=== PATIENT | male | born 1995 | race Caucasian/White ===

== ENCOUNTER 2018-08-13 14:24 | Emergency (ER) | payer OTHER, SELFPAY ==
[2018-08-13 14:26] VITALS: BP 125/80; PULSE 96; RESP 18; TEMP 36.8; O2SAT 100
--- NOTE | 2018-08-13 14:31 | DI.RAD.S_ITS ---
PROCEDURE: XR ANKLE LT MIN 3V INDICATIONS: lt ankle pain, trip/fall TECHNIQUE: 3 views of the ankle were acquired. COMPARISON: None. FINDINGS: Bones: No fractures or dislocations. Ankle mortise is normally aligned. No suspicious bony lesions. Moderate periarticular osteophyte formation at the tibiotalar joint. Soft tissues: No tibiotalar joint effusion. Achilles tendon appears normal. IMPRESSION: Osteoarthritis. No acute fracture. No osseous lesion. If symptoms and/or clinical suspicion for pathology persist, further assessment with repeat, or advanced imaging (e.g., CT, MRI, or bone scan) may be helpful for further assessment. Dictated by: Ritchie Cabezas M.D. on 08/13/2018 at 15:06 Approved by: Ritchie Cabezas M.D. on 08/13/2018 at 15:06
--- NOTE | 2018-08-13 19:17 | ED.LOWEXIN ---
HPI - Extremity Injury (Lower) General Chief Complaint: Extremity Injury, Lower Stated Complaint: LT ANKLE PAIN Time Seen by Provider: 08/13/18 16:11 Source: patient and family Mode of arrival: ambulatory Limitations: no limitations History of Present Illness HPI Narrative: 23-year-old non smoking malel on the autistic spectrum presents with a chief complaint of inverting his left ankle while at work earlier today. He has a long history of injury to this ankle which includes a talar fracture requiring surgery a few years ago. His ankle has some swelling in his pain is largely over the lateral malleolus. He denies any knee or hip pain. His pain is worse with ambulation and improves with rest. He admittedly tolerates pain quite well Onset (ago): hour(s) Type of Injury: inversion Place: work Severity: moderate Relieving factors: rest Exacerbating factors: weight bearing, movement and palpation Context: walking Associated symptoms: swelling Other symptoms: none Treatments prior to arrival: cold therapy Related Data Home Medications Medication Instructions Recorded Confirmed aripiprazole [Abilify] 2.5 mg PO BID #0 08/11/16 08/13/18 clonidine HCl 0.1 mg tablet 0.1 mg PO BID 12/28/17 08/13/18 sertraline 100 mg tablet 200 mg PO DAILY 12/28/17 08/13/18 atomoxetine 40 mg PO DAILY 08/13/18 08/13/18 levothyroxine [Synthroid] 75 mcg PO DAILY 08/13/18 08/13/18 Allergies Allergy/AdvReac Type Severity Reaction Status Date / Time No Known Drug Allergies Allergy Verified 02/25/18 14:34 Review of Systems Constitutional Denies chills, Denies fever(s), Denies lethargy and Denies weakness Eyes Denies change in vision, Denies eye discharge, Denies irritation and Denies loss of vision ENT Ears, Nose, Mouth, and Throat: Denies change in voice, Denies neck pain and Denies sore throat Cardiovascular Denies chest pain, Denies irregular heart rhythm, Denies lightheadedness, Denies palpitations, Denies dyspnea, Denies dyspnea on exertion and Denies orthopnea Respiratory Denies cough, Denies dyspnea, Denies dyspnea on exertion and Denies wheezing Gastrointestinal Gastrointestinal: Denies abdominal pain, Denies change in bowel habits, Denies diarrhea, Denies nausea and Denies vomiting Genitourinary Denies hematuria, Denies flank pain, Denies urinary incontinence and Denies urinary urgency Musculoskeletal Reports joint swelling, Reports limited range of motion and Denies neck pain Integumentary/Breasts Denies pruritus, Denies erythema, Denies rash and Denies wounds Neurologic Denies confusion, Denies loss of vision and Denies weakness Psychiatric Denies anxiety, Denies confusion, Denies depression, Denies homicidal ideation and Denies suicidal ideation Endocrine Denies palpitations Hematologic/Lymphatic Denies easy bruising Allergic/Immunologic Denies wheezing [facility] Medical History Ankle pain (Chronic 2012) Anxiety (Chronic 1995) Autism (Chronic 1995) Foot pain (Chronic) Fractures (Resolved 2012) Surgical History Anesthesia (Resolved) History of Achilles tendon repair (Resolved 2012) History of Achilles tendon repair (Resolved 2013) Family History Grandfather Age: 61 Diabetes mellitus Mental health problem Grandmother Age: 60 Pre-diabetes High cholesterol Mother Age: 39 Overweight Father No problems noted. Grandfather No problems noted. Grandmother No problems noted. Social History Smoking Status: Never smoker Family History Grandfather Age: 61 Diabetes mellitus Mental health problem Grandmother Age: 60 Pre-diabetes High cholesterol Mother Age: 39 Overweight Father No problems noted. Grandfather No problems noted. Grandmother No problems noted. Social History Smoking Status: Never smoker Exam Narrative Exam Narrative: GEN: AOx3 and in mild distress EYES: Pupils are equal, round, and reactive to light and accommodation. Extraoccular muscles are intact bilaterally. There is no subconjunctival hemorrhage or exudate. CHEST: Lungs are clear to auscultation bilaterally and free of wheezes, rales, or rhonchi. Heart rate is regular rhythm, there are no murmurs, clicks, rubs, or gallops. There is no chest wall tenderness. ABD: Abdomen is soft and nontender. There is no guarding or rebound. Bowel sounds are normal in all 4 quadrants. There is no mass or organomegaly. EXT: left ankle has full but painful range of motion with no ligamentous instability. There is some swelling distal to the lateral malleolus in the distribution of the anterior talofibular ligament. He has no pain with a squeeze compression test to indicate high ankle sprain, no pain on palpation of proximal fibula. He has no pain on anterior ankle overlying the talus and no pain over the bony prominence of the medial malleolus. This injury is closed, isolated and neurovascularly intact. SKIN: Warm, pink, and dry. No erythema or rash Initial Vital Signs Initial Vital Signs: Vital Signs Temperature 98.3 F 08/13/18 14:26 Pulse Rate 96 H 08/13/18 14:26 Respiratory Rate 18 08/13/18 14:26 Blood Pressure 125/80 08/13/18 14:26 Pulse Oximetry 100 08/13/18 14:26 Course Orders Ordered: ED Orders 08/13/18 14:31 XR ankle LT min 3V Stat Vital Signs - 8 hr 08/13/18 14:26 Temperature 98.3 F Pulse Rate 96 H Respiratory Rate 18 Blood Pressure 125/80 Pulse Oximetry 100 MDM - Extremity Injury (Lower) Differential Diagnosis Likely ankle sprain and strain Imaging Data ankle xray: Radiologist's impression: [place] [address] XRay Report Signed Patient: Donny Bruno [facility]#: [id number] : 1995Acct:[id number] Age/Sex: 23 / MDate of Service: 08/13/18 Loc: ED Accession Number: [id number] Procedure: XR ankle LT min 3V Ordering Provider: Gianfranco Alicea D.O. PROCEDURE: XR ANKLE LT MIN 3V INDICATIONS: lt ankle pain, trip/fall TECHNIQUE: 3 views of the ankle were acquired. COMPARISON: None. FINDINGS: Bones: No fractures or dislocations. Ankle mortise is normally aligned. No suspicious bony lesions. Moderate periarticular osteophyte formation at the tibiotalar joint. Soft tissues: No tibiotalar joint effusion. Achilles tendon appears normal. IMPRESSION: Osteoarthritis. No acute fracture. No osseous lesion. If symptoms and/or clinical suspicion for pathology persist, further assessment with repeat, or advanced imaging (e.g., CT, MRI, or bone scan) may be helpful for further assessment. Dictated by: Ritchie Cabezas M.D. on 08/13/2018 at 15:06 Approved by: Ritchie Cabezas M.D. on 08/13/2018 at 15:06 Discharge Plan Departure Patient Disposition: Home Clinical Impression: Ankle sprain and strain Discharge Date/Time: 08/13/18 16:42 Interventions: ED Discharge Assessment Last Done: 08/13/18 16:42 Instructions: DI for Ankle Sprain Activity Restrictions/Additional Instructions: *You have been diagnosed with [ ankle sprain ] *What to do: *Take medications as directed: Tylenol or Motrin for pain *Follow up with your primary care provider in 2-3 days, call for an appointment. Let them know you were seen in the Emergency Department and that we ask that you be seen in follow up *Return to ER if you should have any new, worsening or concerning symptoms Prescriptions: No Action aripiprazole [Abilify] 5 MG tablet 2.5 mg PO BID Qty: 0 RF: 0 sertraline 100 mg tablet 200 mg PO DAILY RF: 0 clonidine HCl 0.1 mg tablet 0.1 mg PO BID RF: 0 atomoxetine 40 mg capsule 40 mg PO DAILY RF: 0 levothyroxine [Synthroid] 75 mcg tablet 75 mcg PO DAILY RF: 0 Referrals: Charlotte Hanna DO [Primary Care Provider] - Stand Alone Forms: Work Release Note
--- NOTE | 2018-08-13 19:20 | ED_ITS ---
HPI - Extremity Injury (Lower) General Chief Complaint: Extremity Injury, Lower Stated Complaint: LT ANKLE PAIN Time Seen by Provider: 08/13/18 16:11 Source: patient and family Mode of arrival: ambulatory Limitations: no limitations History of Present Illness HPI Narrative: 23-year-old non smoking malel on the autistic spectrum presents with a chief complaint of inverting his left ankle while at work earlier today. He has a long history of injury to this ankle which includes a talar fracture requiring surgery a few years ago. His ankle has some swelling in his pain is largely over the lateral malleolus. He denies any knee or hip pain. His pain is worse with ambulation and improves with rest. He admittedly tolerates pain quite well Onset (ago): hour(s) Type of Injury: inversion Place: work Severity: moderate Relieving factors: rest Exacerbating factors: weight bearing, movement and palpation Context: walking Associated symptoms: swelling Other symptoms: none Treatments prior to arrival: cold therapy Related Data Home Medications Medication Instructions Recorded Confirmed aripiprazole [Abilify] 2.5 mg PO BID #0 08/11/16 08/13/18 clonidine HCl 0.1 mg tablet 0.1 mg PO BID 12/28/17 08/13/18 sertraline 100 mg tablet 200 mg PO DAILY 12/28/17 08/13/18 atomoxetine 40 mg PO DAILY 08/13/18 08/13/18 levothyroxine [Synthroid] 75 mcg PO DAILY 08/13/18 08/13/18 Allergies Allergy/AdvReac Type Severity Reaction Status Date / Time No Known Drug Allergies Allergy Verified 02/25/18 14:34 Review of Systems Constitutional Denies chills, Denies fever(s), Denies lethargy and Denies weakness Eyes Denies change in vision, Denies eye discharge, Denies irritation and Denies loss of vision ENT Ears, Nose, Mouth, and Throat: Denies change in voice, Denies neck pain and Denies sore throat Cardiovascular Denies chest pain, Denies irregular heart rhythm, Denies lightheadedness, Denies palpitations, Denies dyspnea, Denies dyspnea on exertion and Denies orthopnea Respiratory Denies cough, Denies dyspnea, Denies dyspnea on exertion and Denies wheezing Gastrointestinal Gastrointestinal: Denies abdominal pain, Denies change in bowel habits, Denies diarrhea, Denies nausea and Denies vomiting Genitourinary Denies hematuria, Denies flank pain, Denies urinary incontinence and Denies urinary urgency Musculoskeletal Reports joint swelling, Reports limited range of motion and Denies neck pain Integumentary/Breasts Denies pruritus, Denies erythema, Denies rash and Denies wounds Neurologic Denies confusion, Denies loss of vision and Denies weakness Psychiatric Denies anxiety, Denies confusion, Denies depression, Denies homicidal ideation and Denies suicidal ideation Endocrine Denies palpitations Hematologic/Lymphatic Denies easy bruising Allergic/Immunologic Denies wheezing [facility] Medical History Ankle pain (Chronic 2012) Anxiety (Chronic 1995) Autism (Chronic 1995) Foot pain (Chronic) Fractures (Resolved 2012) Surgical History Anesthesia (Resolved) History of Achilles tendon repair (Resolved 2012) History of Achilles tendon repair (Resolved 2013) Family History Grandfather Age: 61 Diabetes mellitus Mental health problem Grandmother Age: 60 Pre-diabetes High cholesterol Mother Age: 39 Overweight Father No problems noted. Grandfather No problems noted. Grandmother No problems noted. Social History Smoking Status: Never smoker Family History Grandfather Age: 61 Diabetes mellitus Mental health problem Grandmother Age: 60 Pre-diabetes High cholesterol Mother Age: 39 Overweight Father No problems noted. Grandfather No problems noted. Grandmother No problems noted. Social History Smoking Status: Never smoker Exam Narrative Exam Narrative: GEN: AOx3 and in mild distress EYES: Pupils are equal, round, and reactive to light and accommodation. Extraoccular muscles are intact bilaterally. There is no subconjunctival hemorrhage or exudate. CHEST: Lungs are clear to auscultation bilaterally and free of wheezes, rales, or rhonchi. Heart rate is regular rhythm, there are no murmurs, clicks, rubs, or gallops. There is no chest wall tenderness. ABD: Abdomen is soft and nontender. There is no guarding or rebound. Bowel sounds are normal in all 4 quadrants. There is no mass or organomegaly. EXT: left ankle has full but painful range of motion with no ligamentous in stability. There is some swelling distal to the lateral malleolus in the distribution of the anterior talofibular ligament. He has no pain with a squeeze compression test to indicate high ankle sprain, no pain on palpation of proximal fibula. He has no pain on anterior ankle overlying the talus and no pain over the bony prominence of the medial malleolus. This injury is closed, isolated and neurovascularly intact. SKIN: Warm, pink, and dry. No erythema or rash Initial Vital Signs Initial Vital Signs: Vital Signs Temperature 98.3 F 08/13/18 14:26 Pulse Rate 96 H 08/13/18 14:26 Respiratory Rate 18 08/13/18 14:26 Blood Pressure 125/80 08/13/18 14:26 Pulse Oximetry 100 08/13/18 14:26 Course Orders Ordered: ED Orders 08/13/18 14:31 XR ankle LT min 3V Stat Vital Signs - 8 hr 08/13/18 14:26 Temperature 98.3 F Pulse Rate 96 H Respiratory Rate 18 Blood Pressure 125/80 Pulse Oximetry 100 MDM - Extremity Injury (Lower) Differential Diagnosis Likely ankle sprain and strain Imaging Data ankle xray: Radiologist's impression: [place] [address] XRay Report Signed Patient: Donny Bruno [facility]#: [id number] : 1995Acct:[id number] Age/Sex: 23 / MDate of Service: 08/13/18 Loc: ED Accession Number: [id number] Procedure: XR ankle LT min 3V Ordering Provider: Gianfranco Alicea D.O. PROCEDURE: XR ANKLE LT MIN 3V INDICATIONS: lt ankle pain, trip/fall TECHNIQUE: 3 views of the ankle were acquired. COMPARISON: None. FINDINGS: Bones: No fractures or dislocations. Ankle mortise is normally aligned. No suspicious bony lesions. Moderate periarticular osteophyte formation at the tibiotalar joint. Soft tissues: No tibiotalar joint effusion. Achilles tendon appears normal. IMPRESSION: Osteoarthritis. No acute fracture. No osseous lesion. If symptoms and/or clinical suspicion for pathology persist, further assessment with repeat, or advanced imaging (e.g., CT, MRI, or bone scan) may be helpful for further assessment. Dictated by: Ritchie Cabezas M.D. on 08/13/2018 at 15:06 Approved by: Ritchie Cabezas M.D. on 08/13/2018 at 15:06 Discharge Plan Departure Patient Disposition: Home Clinical Impression: Ankle sprain and strain Discharge Date/Time: 08/13/18 16:42 Interventions: ED Discharge Assessment Last Done: 08/13/18 16:42 Instructions: DI for Ankle Sprain Activity Restrictions/Additional Instructions: *You have been diagnosed with [ ankle sprain ] *What to do: *Take medications as directed: Tylenol or Motrin for pain *Follow up with your primary care provider in 2-3 days, call for an appointment. Let them know you were seen in the Emergency Department and that we ask that you be seen in follow up *Return to ER if you should have any new, worsening or concerning symptoms Prescriptions: No Action aripiprazole [Abilify] 5 MG tablet 2.5 mg PO BID Qty: 0 RF: 0 sertraline 100 mg tablet 200 mg PO DAILY RF: 0 clonidine HCl 0.1 mg tablet 0.1 mg PO BID RF: 0 atomoxetine 40 mg capsule 40 mg PO DAILY RF: 0 levothyroxine [Synthroid] 75 mcg tablet 75 mcg PO DAILY RF: 0 Referrals: Charlotte Hanna DO [Primary Care Provider] - Stand Alone Forms: Work Release Note
== END 2018-08-13 16:42 | disposition home or self-care (01) ==
PROVIDERS: Emergency Provider Emergency Medicine; PCP Family Medicine
DX: S93.402A Sprain of unspecified ligament of left ankle, initial encounter (principal); W01.0XXA Fall on same level from slipping, tripping and stumbling without subsequent striking against object, initial encounter; Y99.0 Civilian activity done for income or pay
CPT/HCPCS: 73610; 99282; 99283

== ENCOUNTER → 2021-09-15 15:43 | Outpatient (CLI) | payer BC, OTHER, MEDICAID, SELFPAY ==
[2021-09-15 17:12] LABS: Add Manual Diff / Slide Review NO; Basophils Absolute Auto 0 /uL (0-100); Basophils Percent Auto 0.6 % (0-2); Eosinophils Absolute Auto 100 /uL (0-450); Eosinophils Percent Auto 1.4 % (2-4); Hematocrit 45.1 % (41-53); Hemoglobin 15.8 g/dL (13.5-17.5); Lymphocytes Absolute Auto 2500 /uL (1100-4500); Lymphocytes Percent Auto 43.4 % (25-40); Mean Corpuscular Hemoglobin 29.7 PG (26-34); Mean Corpuscular Volume 84.9 fL (80-100); Monocytes Absolute Auto 400 /uL (0-900); Monocytes Percent Auto 6.6 % (3-14); Neutrophils Absolute Auto 2800 /uL (1500-7000); Platelet Count 179 X10^3/uL (150-400); Red Blood Cell Count 5.32 X10^6/uL (4.5-5.9); Red Cell Distribution Width 14.2 % (11.6-14.8); White Blood Cell Count 5.8 X10^3/uL (4.5-11.0)
[2021-09-15 17:19] LABS: Alanine Aminotransferase 56 IU/L (<50); Albumin 4.8 g/dL (3.5-5.0); Albumin Globulin Ratio 1.5 (1.0-2.8); Alkaline Phosphatase 59 U/L (38-126); Aspartate Aminotransferase 37 IU/L (17-59); BUN Creatinine Ratio 17.1 (6-22); Bilirubin Total 0.7 mg/dL (0.2-1.3); Blood Urea Nitrogen 13 mg/dL (9-20); Calcium 9.7 mg/dL (8.4-10.2); Carbon Dioxide 27 mmol/L (22-32); Chloride 100 mmol/L (98-107); Estimated Glomerular Filt Rate > 60 mL/min (>60); Globulin 3.2 g/dL (1.7-4.1); Glucose 242 mg/dL (70-100); HEMOLYSIS < 15 (0-50); Potassium 3.9 mmol/L (3.4-5.1); Sodium 138 mmol/L (137-145)
[2021-09-15 17:22] LABS: Hemoglobin A1C% w Est Avg Glu 8.8 % (4.0-6.0)
[2021-09-15 17:51] LABS: TSH w/ Reflex to FT4 2.25 uIU/mL (0.47-4.68)
[2021-09-15 18:49] LABS: Creatinine Urine Random 100.5 mg/dL
[2021-09-15 18:53] LABS: Microalbumi Creatinin Ratio Ur 28.8 ug/mg CR (<30); Microalbumin Urine Random 2.9 mg/dL (0-1.6)
== END ==
PROVIDERS: PCP Family Medicine; Referring Provider Family Medicine; Visit Provider Family Medicine
DX: D75.1 Secondary polycythemia (principal); E11.65 Type 2 diabetes mellitus with hyperglycemia; E03.9 Hypothyroidism, unspecified
CPT/HCPCS: 36415; 80053; 82043; 82570; 83036; 84443; 85025

== ENCOUNTER → 2023-01-13 14:59 | Outpatient (CLI) | payer MEDICARE, MEDICAID, SELFPAY ==
--- NOTE | 2023-01-13 | DI.MRI.S_ITS ---
PROCEDURE: MR ANKLE LT WO CON INDICATIONS: PAIN IN LT ANKLE TECHNIQUE: Noncontrast sagittal T1 spin echo and T2 fast spin echo with fat saturation, axial proton density fast spin echo and T2 fast spin echo with fat saturation, coronal T1 spin echo and T2 fast spin echo with fat saturation through the ankle/hindfoot. COMPARISON: None. FINDINGS: Image quality: Excellent. Bones and joints: Multiple osteochondral injuries are seen involving posterior and lateral lateral weight-bearing portion of talar dome with subcortical cystic area measures up to 9 millimeter in size and partial collapse in posterior lateral talar dome. There are suggestion of unstable loose bodies in posterior lateral aspect of tibiotalar joint measures up to 6 millimeter in size series 7, image 19 and series 8, image 29. Adjacent marrow edema is seen in talar dome and distal tibial plafond. Marrow edema is also seen involving posterior lateral aspect of distal tibia extending to distal tibial plafond concerning for nondisplaced fracture versus contusion. No other area of abnormal marrow signal is seen. Small to moderate amount of tibiotalar and subtalar joint effusion is seen. Medial structures: The posterior tibialis, flexor digitorum longus, and flexor hallucis longus tendons are intact. The posterior tibial neurovascular bundle appears normal within the tarsal tunnel, without extrinsic mass effect. The deep layer (anterior and posterior tibiotalar ligaments) and superficial layer (tibionavicular, tibiospring, and tibiocalcaneal ligaments) of the deltoid ligament appear normal. The spring ligament components (superomedial calcaneonavicular, medioplantar oblique calcaneonavicular, and inferoplantar longitudinal ligaments) are intact. Lateral structures: The anterior talofibular, calcaneofibular, and posterior talofibular ligaments appear thickened with intrasubstance T2 hyperintense signal. More superiorly, the anterior and posterior tibiofibular ligaments also appears thickened with intrasubstance T2 hyperintense signal. The tibiofibular syndesmosis is widened and measures up to 4 millimeter in distance. The peroneus longus and brevis tendons are thickened at the level of lateral malleolus extending to the level of mid to distal calcaneus. Adjacent bony peroneal tubercle and retrotrochlear prominence are normal in size. The sinus tarsi demonstrates normal fatty signal, without edema, fibrosis, or cyst formation. Visualized sinus tarsi components (cervical ligament, interosseous talocalcaneal ligament, roots of the inferior extensor retinaculum) appear normal. The calcaneonavicular and calcaneocuboid components of the bifurcate ligament appear intact. The dorsal calcaneocuboid ligament appears intact. Anterior structures: The tibialis anterior, extensor hallucis longus, and extensor digitorum longus tendons appear intact. The dorsal talonavicular ligament appears intact. Posterior and plantar structures: Achilles tendon is intact. Medial and lateral bands of the plantar fascia are of normal thickness. No abductor digiti quinti muscle atrophy to suggest Bojorquez neuropathy. IMPRESSION: 1. Suggestion of bony contusion versus nondisplaced fracture involving posterior lateral portion of distal tibia and distal tibial plafond. Unstable appearing osteochondral injuries involving posterior lateral corner of talar dome weight-bearing portion with multiple loose fragments measures up to 6 millimeter in size. Moderate joint effusion. 2. Sprain/low to moderate grade intrasubstance partial-thickness tear involving lateral ankle ligaments. No full-thickness ligament rupture. Slight widening of distal tibial fibular syndesmosis. 3. Peroneus tendinosis at the level of lateral malleolus extending to the level of mid to distal calcaneus. Dictated by: Raf Oates M.D. on 01/15/2023 at 10:58 Approved by: Raf Oates M.D. on 01/15/2023 at 11:10
== END ==
PROVIDERS: PCP Family Medicine; Referring Provider Podiatrist; Visit Provider Podiatrist
DX: S93.492A Sprain of other ligament of left ankle, initial encounter (principal); M25.572 Pain in left ankle and joints of left foot; M25.472 Effusion, left ankle
CPT/HCPCS: 73721